=== PATIENT | male | born 1970 | race Caucasian/White ===

== ENCOUNTER 2018-07-24 14:20 | Outpatient (CLI) | payer MEDICAID, SELFPAY ==
--- NOTE | 2018-07-24 13:02 | DI.RAD_ITS ---
SYMPTOMS/DIAGNOSIS: LEFT KNEE PAIN; F/U RIGHT KNEE DEGENERATIVE JOINT DISEASE BILATERAL KNEES: Two views of each knee were obtained. There are bilateral ACL reconstructions. There is moderate narrowing of medial tibiofemoral cartilaginous joint space on the left and mild narrowing of medial tibiofemoral cartilaginous joint space on the right. Minimal hypertrophic spurring of the bones of the knee noted. CONCLUSION: DJD involving medial tibiofemoral joints, left greater than right. BILATERAL LOWER EXTREMITIES: AP views of the lower extremities were performed for leg length determination. There are mild degenerative changes of both hips. There are bilateral ACL reconstructions and medial tibiofemoral joint DJD, left greater than right.
== END 2018-07-24 14:40 ==
PROVIDERS: Visit Provider Student in an Organized Health Care Education/Training Program
DX: M17.0 Bilateral primary osteoarthritis of knee (principal); M25.562 Pain in left knee; M16.0 Bilateral primary osteoarthritis of hip
CPT/HCPCS: 73560; 77073

== ENCOUNTER 2018-08-29 08:51 | Outpatient (CLI) | payer MEDICAID, SELFPAY ==
--- NOTE | 2018-08-29 08:00 | HPE_ITS ---
Assessment and Plan (1) Primary osteoarthritis of left knee: Current visit: No Status: Chronic Plan: Patient had standing alignment films done at his last orthopedic appointment. He was provided with a guide to total knee replacements. Educated patient on surgery covering surgical technique via models, recovery process, benefits and risks including but not limited to risk of infection, blood clot, damage to soft tissue/blood vessels/nerves in detail. After discussion patient gives verbal understanding of risks and elects to proceed with scheduling surgery. Patient had opportunity to have questions answered to their satisfaction. They will contact office if issues arise. Patient will continue to be scheduled for left total knee replacement with Dr. Ureña. History of Present Illness Narrative: Mr. Hawkins is a 48-year-old male who presents to visit for scheduled left total knee replacement with Dr. Ureña and 09/07/2018. 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 Patient also complains of bilateral knee instability despite bilateral ACL reconstructions with his right knee operated on 2012 followed by his left in 2015. Despite his ACL reconstruction patient continues to have frequent falling episodes due to pain and instability. He describes as feeling as knees hyperextending with the left worse than the right. Patient complains of chronic bilateral knee pain with the left slightly worse than the right. He has previously tried a right knee injection which is described as tra umatic experience and only provided about 3 hours of pain relief. Patient has also previously tried amitriptyline to help slightly to reduce bilateral knee pain for approximately 1 week. Due to patient's continued bilateral knee pain as well as radiology findings consistent with DJD bilaterally Dr. Ureña offered surgical intervention and patient elected to proceed. Denies any muscle weakness, numbness and tingling. Pertinent Surgical Information Reports history one episode of dyspnea and chest pain that caused him to present to the ER around [id number]. Reports short ER visit when OK was ruled out and he was sent home. Reports that his symptoms fully resolved following that visit. Denies any dyspnea, dyspnea on exertion, chest pain, tachycardia/bradycardia, irregular heart beat, or palpitations. Denies any continued cardiac issues or cardiology follow up. Denies past medical history of: stroke, cardiac issues, angina, asthma, sleep apnea, renal issues, liver issues, hepatitis, gastrointestinal ulcers, bleeding disorders, seizures, migraines, depression, diabetes, autoimmune disorders, thyroid issues Denies prior complications from surgery or anesthesia. Review of Systems Constitutional Denies fever(s) and Denies headache(s) Eyes Denies change in vision ENT Denies dizziness, Denies ear discharge, Denies headache(s), Denies epistaxis, Denies nasal discharge and Denies sore throat Cardiovascular Denies chest pain, Denies rapid heart rate, Denies irregular heart rhythm, Denies palpitations, Denies dyspnea, Denies dyspnea on exertion, Denies orthopnea, Denies paroxysmal nocturnal dyspnea and Denies slow heart rate Respiratory Denies cough, Denies dyspnea, Denies dyspnea on exertion and Denies wheezing Gastrointestinal Denies abdominal pain, Denies melena, Denies hematochezia, Denies constipation, Denies diarrhea, Denies nausea and Denies vomiting Genitourinary Denies hematuria, Denies dysuria and Denies urinary urgency Musculoskeletal Reports as per HPI, Denies numbness and Denies tingling Neurologic Denies dizziness, Denies headache(s), Denies numbness and Denies tingling Psychiatric Reports anxiety and Denies depression Endocrine Denies palpitations Allergic/Immunologic Denies wheezing PFSH Medical History Anxiety (Chronic) Lumbago with sciatica, left side (Acute) Hyperlipidemia (Chronic) Chronic otitis externa (Chronic) Insomnia (Chronic) Tobacco dependence (Chronic) GERD (gastroesophageal reflux disease) (Chronic) COPD (chronic obstructive pulmonary disease) (Chronic) Hypertension (Chronic) Primary osteoarthritis of right knee (Chronic) Primary osteoarthritis of left knee (Chronic) Surgical History Status post cholecystectomy (Chronic) History of repair of anterior cruciate ligament of left knee (Chronic) History of repair of anterior cruciate ligament of right knee (Chronic) Family History Maternal Grandfather Colon malignancy Uncle Colon malignancy Social History Smoking/Tobacco Use Status: Current every day Tobacco Type: cigarettes Smoking cigarettes per day: 3 Years smoked: 36 Tobacco: How many years used: 36 Alcohol Intake: current Alcohol Intake frequency: holidays/special occasions only Drug use: Never current occupation: trying to get on disability Meds Home Medications Medication Instructions Recorded Confirmed Type omeprazole 40 mg capsule,delayed 40 mg PO DAILY 07/24/18 07/24/18 History release Allergies Allergy/AdvReac Type Severity Reaction Status Date / Time peas Allergy Anaphylaxsi Verified 08/29/18 08:24 s lisdexamfetamine AdvReac Intermediate Verified 08/29/18 08:24 [From [facility]] Exam Const General: cooperative and no acute distress [facility] Head: normal to inspection, normocephalic and atraumatic Ears: external ears normal General nose exam: external nose normal and no nasal discharge Face and sinus: face symmetric Mouth: oral mucosae normal, lip normal, tongue normal and moist mucous membranes Teeth and gingiva: dentition normal Throat: posterior oropharynx normal Eyes General: appearance normal, both eyes and all related structures Pupils: PERRL EOM: EOM intact bilaterally Neck Neck: trachea midline Carotids: normal carotid upstroke Lymphatic: no lymphadenopathy noted Resp Effort & Inspection: normal respiratory effort and able to speak in complete sentences Auscultation: clear to auscultation bilaterally, no rales, no rhonchi and no wheezes Cardio Heart Sounds: S1 normal, S2 normal, no murmurs, no rubs and no other Pulses: radial pulses present bilaterally GI Palpation: soft, no hepatosplenomegaly and nontender Auscultation: normal bowel sounds Skin General skin exam: no rashes or lesions noted Extrem Other: Left knee examination: Skin is intact without signs of rash, lesions, erythema or calor. No signs of effusion are noted. Tenderness to palpation along medial and lateral joint lines. Active range of motion yields full extension and flexion to 90 degrees with discomfort elicited. Slight laxity is appreciated with valgus stress but stable end point is achieved - patient has discomfort with stress testing. Knee is stable to varus stress with minimal discomfort.
[2018-08-29 10:18] LABS: HCT 44.8 % (40.0-50.0); HGB 15.3 g/dL (13.5-17.5); Mean Corp. HGB Concentration 34.2 g/dL (32.0-36.0); Mean Corpuscular Hemoglobin 32.3 pg (27.0-33.0); Mean Corpuscular Volume 94.5 fL (80-95); Mean Platelet Volume 9.3 fL (8.0-11.0); Platelet Count 245 x1000/uL (130-400); RBC 4.74 m/cumm (4.50-6.00); White Blood Cell Count 6.21 k/cumm (4.4-10.8)
[2018-08-29 10:35] LABS: Hemoglobin A1C 5.6 % (4.5-6.2)
[2018-08-29 11:17] LABS: ALT 31 U/L (12-78); AST 16 U/L (15-37); Alkaline Phosphatase 75 U/L (46-116); Anion Gap 9.3 mmol/L (3-11); BUN 13 mg/dL (7-18); Bilirubin, Total 0.3 mg/dL (0.2-1.0); CO2 26.7 mmol/L (21.0-32.0); Calcium 8.7 mg/dL (8.5-10.1); Chloride 106 mmol/L (98-107); Glucose 110 mg/dL (70-100); Potassium 4.5 mmol/L (3.5-5.1); Sodium 142 mmol/L (136-145); Total Protein 7.2 g/dL (6.4-8.2)
== END 2018-08-29 09:11 ==
PROVIDERS: PCP Internal Medicine; Visit Provider Student in an Organized Health Care Education/Training Program
DX: M25.562 Pain in left knee (principal); M17.12 Unilateral primary osteoarthritis, left knee; K21.9 Gastro-esophageal reflux disease without esophagitis; Z01.812 Encounter for preprocedural laboratory examination; Z01.818 Encounter for other preprocedural examination
CPT/HCPCS: 36415; 80053; 85027; NC; 83036

== ENCOUNTER 2018-09-07 06:28 | Inpatient (IN) | payer MEDICAID, SELFPAY ==
[2018-08-29 09:12] VITALS: BP 138/88; PULSE 79; RESP 16; TEMP 37.3; O2SAT 99
[2018-08-29 09:15] VITALS: BP 138/88; PULSE 79; RESP 16; TEMP 37.3; O2SAT 99
[2018-09-07] VITALS (12 sets, daily range): BP systolic 115–137; BP diastolic 78–98; PULSE 62–86; RESP 14–18; TEMP 35.7–36.7; O2SAT 95–98
[2018-09-07] MEDS: oxyCODONE-CR 10 MG TABCR PO (06:56)
[2018-09-07] MEDS: Celecoxib 200 MG CAP 400 MG PO (06:56)
[2018-09-07] MEDS: Gabapentin 300 MG CAP PO (06:57)
[2018-09-07] MEDS: Acetaminophen 500 MG TAB 1000 MG PO ×3 (06:57→20:06)
[2018-09-07] MEDS: Lactated Ringers 1,000 ML 80 ML IV ×4 (07:25→22:56)
[2018-09-07] MEDS: Bupivacaine LIPOSOME/PF 133 MG/10 ML VIAL IJ ×2 (07:38→09:07)
[2018-09-07] MEDS: Bupivacaine 0.5% Pres-Free 30 ML VIAL (07:38)
[2018-09-07] MEDS: ceFAZolin 3,000 MG in Normal Saline 100 ML 200 MG IVPB (08:00)
[2018-09-07] MEDS: Normal Saline 50 ML (09:07)
[2018-09-07] MEDS: Ketorolac 30 MG/ML VIAL (09:07)
[2018-09-07] MEDS: Bupivacaine 0.25% Pres-Free 30 ML VIAL (09:07)
[2018-09-07] MEDS: Normal Saline Flush 10 ML SYR IV (11:15)
--- NOTE | 2018-09-07 11:33 | NUR.NOTE ---
Nursing Note: Patient transferred from PACU to Med/Surg room 206 at 1040 via stretcher
[2018-09-07] MEDS: oxyCODONE 5 MG TAB PO ×4 (12:39→22:55)
--- NOTE | 2018-09-07 15:13 | IN_ITS ---
Date of service: 09/07/18 Time of Service: 14:07 PT Notes Inpatient Physical Therapy Evaluation Date: 09/07/2018 Referring Doctor: Dina PT Orders: PT CONSULT: Status post left TKA Precautions: Fall. Standard. WBAT on left LE Patient Profile/Admitting Diagnosis: Patient is a 48-year-old male with primary osteoarthritis of left knee status post left total knee arthroplasty on postoperative day 0. PMHX: Medical History Anxiety (Chronic) Lumbago with sciatica, left side (Acute) Hyperlipidemia (Chronic) Chronic otitis externa (Chronic) Insomnia (Chronic) Tobacco dependence (Chronic) GERD (gastroesophageal reflux disease) (Chronic) COPD (chronic obstructive pulmonary disease) (Chronic) Hypertension (Chronic) Primary osteoarthritis of right knee (Chronic) Primary osteoarthritis of left knee (Chronic) Surgical History Status post cholecystectomy (Chronic) History of repair of anterior cruciate ligament of left knee (Chronic) History of repair of anterior cruciate ligament of right knee (Chronic) Social History/Home Situation: Bill lives with mother in a 1 floor house with 1 step to enter, no rails. 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 He was independent with all aspects of ADLs without the need for ambulatory device or adaptive equipment. Son lives 2 miles away from them. Current Functional Limitations: Need for an assistive device for all transfer and ambulation task performance Equipment Owned/DME: None Subjective: Patient is agreeable to a PT consult and treatment today. He is amazed at how much he is able to do and at how soon he could walk right after surgery. He states he is looking forward to having the other knee done next year. He reports that he has been used to pain for a long time that his pain threshold is high. He denies headache, chest pain, and dizziness throughout PT session. Objective: General Observation: Patient seen resting in bed. BMI 35.8 kg/m2. IV in the right UE. Cuevas catheter in place. T EDS on her right leg. VINCENT bandage on left LE. Cryocuff on left LE. Mental Status: Alert and oriented x4 Pain: 2-3/10 at rest and with Oxycodone intake at noon today. 5-6/10 after gait activity. Vital Signs: Patient tested negative for orthostatic hypotension as tested nursing staff. ROM: Right Upper Extremity: Shoulder Flexion WFL. Shoulder abduction WFL. Elbow flexion WFL. Wrist flexion WFL. Functional opening and closing of hand WFL. Left Upper Extremity: Shoulder Flexion WFL. Shoulder abduction WFL. Elbow flexion WFL. Wrist flexion WFL. Functional opening and closing of hand WFL. Right Lower Extremity: Hip flexion WFL. Hip abduction WFL. Knee flexion WFL. Ankle dorsiflexion WFL. Ankle plantarflexion WFL. Left Lower Extremity: Hip flexion WFL. Hip abduction WFL. Knee flexion allows up to 90 degrees pain-free actively while seated on chair. Full knee extension achievable actively with minimal pain at kdh-cv-timat.PAtient is able to perform SLR x 10 without extensor lag and LAQs x 10 with fatigue reported towards the end. Ankle dorsiflexion WFL. Ankle plantarflexion WFL. Strength: Right Upper Extremity: Shoulder flexors 5/5. Shoulder abductors 5/5. Elbow flexors 5/5. Elbow extensors 5/5. Auditor Supervisor strong. Left Upper Extremity: Shoulder flexors 5/5. Shoulder abductors 5/5. Elbow flexors 5/5. Elbow extensors 5/5. Auditor Supervisor strong. Right Lower Extremity: Hip flexors 5/5. Hip abductors 5/5. Knee flexors 5/5. Knee extensors 5/5. Ankle dorsiflexors 5/5. Ankle plantarflexors 5/5. Left Lower Extremity:Hip flexors 4/5. Hip abductors 4/5. Knee flexors 3-/5. Knee extensors 4/5. Ankle dorsiflexors 4/5. Ankle plantarflexors 4/5. Sensation: Intact as to pain and pressure on bilateral lower extremities. Bed Mobility/Transfers: Rolling SBA Supine to sit SBA Sit to supine SBA Sit to stand CGA Stand to sit CGA Bed to chair CGA Chair to bed CGA Gait: Patient is able to tolerate 12 feet x 2 of level surface ambulation using front wheeled walker with DVT on left LE and CGA of this PT with step through gait pattern with pain on the left knee increasing her gait activity. Verbal cues needed for walker management and overall safety. Bilateral knees in good vertical alignment in standing. Midstance time on left limited due to pain with weight-bearing. Gait velocity decreased. Balance: Static Sitting: Good Dynamic Sitting: Good Static Standing: Fair Dynamic Standing: Fair Special Tests: Mobility Limitations Standardized Measure [facility] AM-PAC 6 clicks Basic Mobility Inpatient Short Form: Raw Score: 20 CMS Score: 36% deficit Informed Consent/Education: Patient instructed in purpose of PT consult and plan of care. Patient was advised to perform ankle pumping x30, quadriceps sets with 5-second hold x10, and gluteal setting with 5-second holds x10 every hour on his own to facilitate increased range of motion and maximize functional performance. Assessment: Patient is a 48-year-old male with primary osteoarthritis of left knee status post left total knee arthroplasty on postoperative day 0. Patient presents with clinical signs and symptoms consistent with current/admitting di agnoses and postoperative status that have resulted to mobility limitations, gait instability, generalized weakness, and impairment of motor control as demonstrated by the following impairment level findings: 1. Decreased strength to L kne major muscle groups 2. Impaired soft tissue integrity to L knee 3. Pain on L knee 4. Impaired sitting/standing balance 5. Impaired activity tolerance 6. Limitation of joint range of motion in left knee flexion Impairments are contributing to the following functional limitations: 1. Inability to safely ambulate without assistive device and physical assistance 2. Increase completion time for mobility ADL performance 3. Increased fall risk 4. Inability to negotiate steps alone safely Patient is assessed as a [id number] moderate complexity based on the following: History: Patient is a 48-year-old male with independent premorbid level now with primary osteoarthritis of left knee status post left total knee arthroplasty on postoperative day 0 Examination: Demonstrable impairment in strength, balance, and range of motion with underlying impairments and functional limitations as documented above Presentation:Evolving Decision Makin moderate complete Goals: Goals X1 week 1. Supine-Sit independent 2. Sit-Supine independent 3. Sit-Stand independent 4. Stand-Sit independent 5. Bed-Chair independent 6. Chair-Bed independent 7. Independent gait on level surface with use of least restrictive device for at least 300 feet without report of pain nor dyspnea 8. Independent stair negotiation while holding onto bilateral rails for at least 3 steps without report of pain nor dyspnea 9. Independent with home exercise program 10. Good static and dynamic standing balance/tolerance Plan of Care/Treatment Plan: 1-2x/day, 7 days/week x 1 week. Plan of care has been reviewed with the ADVISER SALES providing the service under Physical Therapy direction. Initiate Physical Therapy intervention for strengthening, bed mobility, transfers, gait, stairs, balance training, use of assistive device. DISCHARGE RECOMMENDATIONS: May benefit from skilled physical therapy services according to orthopedic surgeon timeline recommendations. Patient will be e ducated and trained on home exercise program per TKA exercise protocol in preparation for outpatient physical therapy services. TREATMENT CODE/TIME: 9716 2 x 30 minutes, 29862 x 24 minutes beginning at 14:07 PM. Thank you very much for this referral. Veronica Barlow PT, DPT, CLT [facility]
[2018-09-07] MEDS: HYDROmorphone 2 MG/ML VIAL 0.5 MG IVP ×2 (18:42→23:38)
[2018-09-07] MEDS: Celecoxib 100 MG CAP 200 MG PO (20:06)
[2018-09-07] MEDS: Aspirin E.C. 325 MG TABEC 81 MG PO (20:06)
[2018-09-08] MEDS: oxyCODONE 5 MG TAB PO ×3 (05:39→12:10)
[2018-09-08 05:47] VITALS: BP 125/83; PULSE 75; RESP 14; TEMP 36.3; O2SAT 98
--- NOTE | 2018-09-08 05:48 | W.PM.OP ---
Date of service: 09/08/18 Time of Service: 05:48 Operative Note DATE OF PROCEDURE: 09/07/18 PRE-OP DIAGNOSIS: Left knee osteoarthritis POST-OP DIAGNOSIS: same PROCEDURE: Left Total Knee Replacement SURGEON: Juan Carlos Ureña OPTOMETRIC TECH: Melissa Cm ANESTHESIA: regional and spinal ESTIMATED BLOOD LOSS: 200 PATHOLOGY: none sent TOURNIQUET TIME: 31 COMPLICATIONS: None Patient was transported to: PACU Patient's condition: stable Implants: 1. Depuy Attune Posterior Stabilized Femoral Component, Size 6 2. Depuy Attune Fixed Platform Tibial Component, Size 5 3. Depuy Attune 6 x 8 mm fixed, Stabilized Poly 4. Depuy Attune Patellar Component, Size 38 mm Indications: I have seen Roberto in clinic for symptoms of left knee arthritis and instability, confirmed with radiographic findings. He has exhausted nonoperative methods and was having significant limitations in daily function and desired better function and less pain. I discussed the technical details of a knee replacement. I explained the risks of the procedure to include, but not limited to, bleeding, infection, pain, stiffness, fracture, damage to nerves and vessels, damage to muscles and tendons, loosening, need for repeat procedure, blood clot and cardiopulmonary demise. Despite these risks, Roberto elected to proceed. Findings: There was severe chondromalacia primarily medial tibia. There is also some patellar chondromalacia appreciated. The ACL and PCL were intact but there is significant hyperextension laxity of the left knee and preoperative testing. Procedure Description: Roberto was greeted in the preoperative holding area where the correct side was identified and marked. The consent was reviewed with the patient and signed. The history and physical was updated. All questions were answered. Preoperative mediacations were administered: Acetaminophen 1000mg, Celebrex 400mg, Gabapentin 300mg, and Oxycontin 10mg. An adductor canal block was then administered by the anesthesia team in the PACU. He was taken back to the operating room. A spinal anesthestic was then administered. The patient was placed into the supine position on the operating room table. A nonsterile tourniquet was placed high onto the leg but only used for cementing. Posts were placed for positioning during the procedure. All bony prominences were well padded. Prophylactic antibiotics in the form of cefazolin were administered. 1g of Tranxemic Acid was given intravenously within 30 minutes of incision. The left leg was then prepped with Chloraprep and draped in a standard fashion with impervious stockinette and extremity drape with Iodine impregnated skin protection. A timeout to confirm correct identity, side and site, procedure, allergies, anesthesia, and medical concerns was performed. With the knee in some flexion, a midline incision was made overlying the knee. Full thickness skin flaps were raised once the extensor mechanism was encountered. These were raised medially and laterally. Any bleeding was controlled with electrocautery. Once the extensor mechanism was fully exposed, a medial parapatellar arthrotomy was performed in a flexed position. All bleeding from the arthrotomy and the geniculate arteries was coagulated. A medial subperiosteal peel was performed with electrocautery to the midcoronal plane. The fat pad was removed while keeping the patellar tendon protected. The anterior distal femur synovium was removed for later visualization. The ACL and PCL were resected and the anterior horn of the lateral meniscus was transected. The knee was then flexed with the patella everted. Using a step drill, and based on preoperative templating, the femoral canal was entered. This was done with a step drill without any difficulty. The intramedullary distal femoral cut guide was inserted, set to a 5 degree valgus cut and 9mm cut thickness. The distal femoral cut guide was then held in position and pinned. With the soft tissues protected, the distal cut was performed. This was passed over a few times to ensure a planar cut. I then turned attention to the tibia. The extramedullary guide was placed onto the leg. The distal aspect was slid medial to adjust for position of center of ankle and stay in line with shaft of the tibia. Approximately 3-5 degrees of posterior slope was kept in the proximal cutting guide. The center of the guide was aligned with the PCL. The stylus was used to assess cut thickness. The medial side, most involved side, was set for a 5mm cut. This was then held in position and pinned into place with 2 additional pins and a cross pin for stability. The medial and lateral collateral ligaments were protected and the cut was performed. With this completed, it was assessed and noted to be of appropriate dimensions. The guide was removed. A spacer block was inserted and the knee was brought into extension. The 7 mm spacer block provided full extension, without hyperextension and with stability of both the medial and lateral collateral ligaments was assessed. The pins from the femur and the tibia were then removed. The distal femur was then sized. The anterior stylus was placed onto the lateral ridge of the anterior femur. This indicated a size 6 femur. The external rotation of the guide was adjusted to 3 degrees to match the epicondylar axis, perpendicular to [place]?s line. The 4-in-1 cutting guide was the placed. The posterior medial femur cut was evaluated and appeared of good thickness. The spacer block was inserted underneath the cutting guide and stability was confirmed in 90 degrees of flexion. An sotero wing was used to confirm appropriate position of the anterior cut to avoid notching. This cutting guide was ensured to be flush on the cut surface and then pinned into place with headed pins. While protecting the soft tissues, quad tendon, and collateral ligaments, the anterior and posterior cuts were performed with a saw. The central two pins were removed and the posterior and anterior chamfers were cut next. The notch-cutting guide was placed. This was pinned to lateralize the femoral component as much as possible while keeping it flush on the cut surface. This was then pinned into position. A reciprocating saw was used to make the notch cut. A rasp smoothed the cut surfaces. A trial posterior stabilized femoral component was then inserted, impacted down to the cut surfaces, and the lug holes were drilled. A provisional trial tibial component was placed and the knee was brought through range of motion. The polyethylene was trialed until there was good flexion and extension with excellent stability to the medial and lateral collaterals. The patella was tracking without thumbs. The tibial cut surface was fully exposed. The medial and lateral menisci were removed. The tibia was then sized as a 5. The tibia had been previously marked during trialing to correspond to the center of the tibial component to help with rotation. The trial was aligned to this melissa, approximately rotated to the medial 1/3rd of the tibial tubercle. The trial was pinned into place. The tibia was prepared with a reamer and a keel punch. The knee was then brought into extension and the patella was measured as 25 mm. Using the patellar clamp and cut guide, this was resected to a flat surface with at least 13mm of thickness remaining. The size 38 patella fit the best. This was oriented and then clamped into position. The lugs were drilled. The trial components were removed. The final components, except for the polyethylene were opened on the back table. The periosteal and capsular tissues, especially posteriorly, around the knee were then systematically injected with a periarticular cocktail consisting of 50cc 0.25% Marcaine, 30mg Ketorolac, 20cc of Exparal and 50cc of injectable saline. The tourniquet was then inflated to 275mmHg. The knee was thoroughly irrigated with a pulse lavage and dried. On the back table, with the implants opened, the cement was mixed. 2 batches of antibiotic laden cement were prepared with vacuum assistance. After the cement was ready a small amount was placed on to the back side of the tibial component at the keel. A small amount was placed onto the posterior flange of the femur. Cement was manual pressurized and impregnated into the cut surface of the tibia. The tibial component was then inserted into the cut surface and impacted into position. Excess cement was removed and the component was reimpacted. Again, excess cement was removed and our attention was then turned to the femur. The femoral cut surface was once again dried and cement was manually impacted into the cut surface. The femoral component was lined with the lug holes and impacted. Excess cement was removed. It was ensured to be down against the cut surface. The trial polyethylene was then inserted and the leg was brought out into full extension for the duration of the cement curing process, approximately 15min. Cement was lastly manually impacted into the cut surface of the patella and the patellar button was clamped into position and held. During this process attention was turned to the gutters of the knee and for all interfaces for any excess cement. After the cement had finally cured, approximately 15min, the clamp was removed from the patella and the knee was taken through range of motion. A size 8 mm polyethylene component provided the best range of motion and stability with less than 2mm gapping with medial and lateral stress and full extension without significant hyperextension. The patella was tracking with a no-thumbs technique. The trial poly was removed and once again the knee was checked for any loose, excess, or errant cement. The poly component was then inserted and impacted into position after cleaning and drying the tibial tray. The capsule was then reapproximated with a No. 1 Vicryl at multiple locations. The capsule was finally closed with a No. 2 Stratafix, barbed suture. The tourniquet was then released and the arthrotomy appeared watertight without significant bleeding. The second dosing of 1g TXA was started. Deep tissues were then reapproximated with 0 Vicryl and 2-0 Vicryl. The skin was closed with a running 3-0 Monocryl in a subcuticular fashion. This was reinforced with skin glue. A Mepilex silver dressing was applied along with a [id number] VINCENT wrap. A CryoCuff was applied. Roberto was transferred to the hospital bed without difficulty an suffering no apparent complication. Roberto has a good prognosis. Physical therapy will start today and without restrictions, weight-bearing as tolerated. Aspirin 81mg BID will be used for DVT prophylaxis.
[2018-09-08 07:45] VITALS: BP 131/89; PULSE 74; RESP 18; TEMP 36; O2SAT 96
[2018-09-08] MEDS: Dexamethasone 4 MG TAB PO (08:11)
[2018-09-08] MEDS: Omeprazole 20 MG CAPCR PO (08:11)
[2018-09-08] MEDS: Celecoxib 100 MG CAP 200 MG PO (08:12)
[2018-09-08] MEDS: Acetaminophen 500 MG TAB 1000 MG PO (08:12)
[2018-09-08] MEDS: Aspirin E.C. 325 MG TABEC 81 MG PO (08:13)
--- NOTE | 2018-09-08 08:24 | PDOC.CMIN ---
Care Management Initial Assess REASON FOR HOSPITALIZATION:: L Knee DJD PAST MEDICAL HISTORY/PAST SURGICAL HISTORY:: Anxiety, Lumbago with sciatica, left side, Hyperlipidemia, Chronic otitis externa, Insomnia, Tobacco dependence, GERD, COPD, Hypertension, Primary osteoarthritis of bilat knees, cholecystectomy, History of repair of anterior cruciate ligament bilaterally PREVIOUS FUNCTIONAL STATUS/SOCIAL/FAMILY SUPPORTS:: Roberto resides in [place], [place]. He is independent at baseline with all ADLs. CURRENT FUNCTIONAL STATUS:: Roberto was pleasant in interaction, worked with PT and was cleared for discharge. He shared no concerns regarding his discharge plan, CM reviewed contact information as needed post discharge. ADVANCE DIRECTIVES:: None on file at [facility]. Has patient been provided with information about the portal?: Yes Did the patient sign up for the portal?: No CODE STATUS:: Full Code INSURANCE COVERAGE / FINANCIAL ISSUES:: Medicaid CURRENT HOME/COMMUNITY SERVICES/EQUIPMENT:: No current services or equipment. PRIMARY CARE PHYSICIAN:: Leeroy Fernando POTENTIAL DISCHARGE NEEDS:: Follow up appointments with Dr. Ureña and his PCP. PATIENT/FAMILY EDUCATION NEEDS:: Review of discharge instructions, discuss Ask Me Three. ANTICIPATED BARRIERS TO DISCHARGE:: None identified. TRANSPORTATION:: Via private vehicle with family. PLAN:: Roberto will return home when ready per MD. He will have new FWW coordinated by this verse writer through and [facility] at Roberto's request. He will follow up with Dr. Ureña and his plan of care as prescribed. He will transport via private vehicle with his son.
[2018-09-08 11:47] VITALS: BP 131/78; PULSE 82; RESP 20; TEMP 36.4; O2SAT 97
--- NOTE | 2018-09-08 11:55 | PT.INTREAT ---
Date of service: 09/08/18 Time of Service: 11:55 PT Notes Inpatient Physical Therapy Treatment Note [facility] Date: 09/08/18 PRECAUTIONS: Fall, WBAT L SUBJECTIVE: Roberto states that he is feeling pretty good today, although a little stiff t/o L LE. He reports that he walked multiple times with nursing last night, which felt good. OBJECTIVE: PAIN: No c/o pain BED MOBILITY/TRANSFERS Supine-sit: I with HOB flat Sit-stand: S Stand-sit: S GAIT Assistive Device: FWW Weight bearing: WBAT on L Assist: S Distance: 300' Deviation: Step-through THEREX: Patient completed a LE strengthening and stabilization program, as per flow sheet. Ends with cryocuff to L knee. ASSESSMENT: Patient tolerated session well without complaint of pain. He was able to tolerate a progression in gait distance with FWW support and supervision. PLAN:As per primary PT TREATMENT CODE/TIME: 25 minutes; [id number], [id number]
--- NOTE | 2018-09-08 11:59 | DSE_ITS ---
Date of service: 09/08/18 Time of Service: 12:08 DS: Diagnosis Discharge Diagnosis (1) Primary osteoarthritis of left knee: Status: Chronic Discharge Plan Disposition Patient Disposition: HOME Condition: Improving Discharge Details Reason For Visit: L KNEE DJD Admit Date/Time: 09/07/18 06:28 Admit Provider: Juan Carlos Ureña Attending Provider: Juan Carlos Ureña Primary Care Provider: Leeroy Fernando Hospital Course Hospital Course: Patient was admitted to the medical/surgical floor following the procedure. It was tolerated well without any notable medical, surgical, or anesthetic complications. Mobilization began postoperatively. The gray catheter was removed and voiding spontaneously. Vitals were stable. Physical therapy worked with the patient and was cleared for discharge home. No acute medical issues. Home Meds and New Rx's Prescriptions: New aspirin 81 mg tablet,delayed release (DR/EC) 81 mg PO BID Qty: 60 RF: 0 acetaminophen 500 mg tablet 1,000 mg PO Q8H PRN (Reason: pain) Qty: 90 RF: 3 gabapentin 300 mg capsule 300 mg PO QHS Qty: 7 RF: 0 ibuprofen 600 mg tablet 600 mg PO TID PRNQty: 90 RF: 3 oxycodone 10 mg tablet 10 mg PO Q4H PRN (Reason: pain) Qty: 18 RF: 0 Continued omeprazole 40 mg capsule,delayed release(DR/EC) 20 mg PO DAILY RF: 0 Discharge Instructions Additional Instructions: Dr. Ureña?s Total Knee Discharge Instructions Activity: The most important activity is to walk. You should try to take short walks a few times a day. It is important that when resting you work on keeping the knee straight. Avoid putting a pillow behind the knee as this will encourage flexion. Work on range of motion exercises as provided by Physical Therapy. - Start outpatient physical therapy within 2 weeks. - You should wear the GLO hose on both legs for 2 weeks. Dressing: Keep the surgical dressing in place for at least one week. After the first week it may be removed and replace with light gauze and tape or nothing. It may get wet after 3 days but avoid soaking the dressing. If it gets wet, just lightly pat dry. Medications: - You should take Tylenol and anti-inflammatory ibuprofen as your primary pain control medications - You have been prescribed a stronger pain medication oxycodone for breakthrough pain, take as needed as prescribed. - You should continue stomach acid reduction agent omeprazole to help reduce stomach acid and reflux. - You will be taking aspirin 81mg twice a day for DVT prevention unless instructed otherwise. - If you have constipation you should take Colace or Miralax (both [id number]). It takes most people 3-4 days to have a bowel movement. Follow-up: 2 weeks Stand Alone Forms: Nursing Discharge Form Referrals: Juan Carlos Ureña MD [ [facility]FF PHYSICIAN] - Activity:: Activity as Tolerated Equipment/Supplies:: Walker Diet:: As Tolerated DS: Data Vitals/I&O Vitals and I&O: Vital Signs Temperature 36.4 C L 09/08/18 11:47 Temperature Source Tympanic 09/08/18 11:47 Pulse 82 09/08/18 11:47 Pulse Rhythm Regular 09/08/18 07:45 Respiratory Rate 20 09/08/18 11:47 Respiratory Effort Non-Labored 09/08/18 07:45 Respiratory Depth Normal 09/08/18 07:45 Respiratory Pattern Normal 09/08/18 07:45 Blood Pressure 131/78 09/08/18 11:47 Pulse Oximetry 97 09/08/18 11:47 Oxygen Delivery Method Room Air 09/08/18 11:47 Oxygen Flow Rate 0 09/08/18 11:47 Pain Level 4 09/08/18 11:52 Comment 09/08/18 11:47 Intake & Output 09/07/18 09/07/18 09/08/18 11:59 23:59 11:59 Intake Total 2430 / 5656.667 3226.667 / 5656.667 1460 / 1460 Output Total 1125 / 5025 3900 / 5025 2049 Balance 1305 / 631.667 -673.333 / 631.667 -590 / -590 Weight 113.3 kg Intake: IV 2130 / 3256.667 1126.667 / 3256.667 1100 / 1100 Oral 300 / 2400 2100 / 2400 360 / 360 Output: Urine 875 / 4775 3900 / 4775 2049 Estimated Blood Loss 250 / 250 Other: Urine Color Yellow Yellow Yellow Urine Appearance Clear Clear Clear Comment pt voided stated it seemed like alot but there was no hat so could not measure Stool Size Large Stool Characteristics Formed Brown Emesis Description None Voiding Methods Indwelling Catheter Toilet [facility] Medical History Anxiety (Chronic) Chronic otitis externa (Chronic) COPD (chronic obstructive pulmonary disease) (Chronic) GERD (gastroesophageal reflux disease) (Chronic) Hyperlipidemia (Chronic) Hypertension (Chronic) Insomnia (Chronic) Lumbago with sciatica, left side (Acute) Primary osteoarthritis of left knee (Chronic) Primary osteoarthritis of right knee (Chronic) Tobacco dependence (Chronic) Surgical History History of repair of anterior cruciate ligament of left knee (Chronic) History of repair of anterior cruciate ligament of right knee (Chronic) Status post cholecystectomy (Chronic) Family History Maternal Grandfather Colon malignancy Uncle Colon malignancy Social History Smoking/Tobacco Use Status: Current every day Tobacco Type: cigarettes Tobacco: How many years used: 36 Alcohol Intake: current Alcohol Intake frequency: holidays/special occasions only Drug use: Never current occupation: trying to get on disability
--- NOTE | 2018-09-08 15:39 | CHAPLAIN ---
I visited Roberto this morning as he was waiting to be discharged. He told me about his knee surgery and said it was already feeling less painful, and he was looking forward to being discharged.
--- NOTE | 2018-09-08 17:17 | INDS_ITS ---
Date of service: 09/08/18 PT Notes Inpatient Physical Therapy Discharge Summary Dates: 09/08/2018 Dates of Service: 09/07/2018 through 09/08/2018 This is a clinical summary of care provided on the duration of dates listed above. No charge was made in the completion of this documentation. Referring Doctor: Dina PT Orders: PT CONSULT: Status post left TKA Precautions: Fall. Standard. WBAT on left LE Patient Profile/Admitting Diagnosis: Patient is a 48-year-old male with primary osteoarthritis of left knee status post left total knee arthroplasty on postoperative day 1. PMHX: Medical History Anxiety (Chronic) Lumbago with sciatica, left side (Acute) Hyperlipidemia (Chronic) Chronic otitis externa (Chronic) Insomnia (Chronic) Tobacco dependence (Chronic) GERD (gastroesophageal reflux disease) (Chronic) COPD (chronic obstructive pulmonary disease) (Chronic) Hypertension (Chronic) Primary osteoarthritis of right knee (Chronic) Primary osteoarthritis of left knee (Chronic) Surgical History Status post cholecystectomy (Chronic) History of repair of anterior cruciate ligament of left knee (Chronic) History of repair of anterior cruciate ligament of right knee (Chronic) Social History/Home Situation: Bill lives with mother in a 1 floor house with 1 step to enter, no rails. Patient is a ann by [employer] and previously renovated his mom's home so that it is handicap-accessible. He was independent with all aspects of ADLs without the need for ambulatory device or adaptive equipment. Son lives 2 miles away from them. Current Functional Limitations: Need for an assistive device for all transfer and ambulation task performance Equipment Owned/DME: None Subjective: NT Objective: General Observation: NT Mental Status: NT Pain: NT ROM: Right Upper Extremity: Shoulder Flexion WFL. Shoulder abduction WFL. Elbow flexion WFL. Wrist flexion WFL. Functional opening and closing of hand WFL. Left Upper Extremity: Shoulder Flexion WFL. Shoulder abduction WFL. Elbow flexion WFL. Wrist flexion WFL. Functional opening and closing of hand WFL. Right Lower Extremity: Hip flexion WFL. Hip abduction WFL. Knee flexion WFL. Ankle dorsiflexion WFL. Ankle plantarflexion WFL. Left Lower Extremity: Hip flexion WFL. Hip abduction WFL. Knee flexion allows up to 90 degrees pain-free actively while seated on chair. Full knee extension achievable actively with minimal pain at [id number]-[id number].PAtient is able to perform SLR x 10 without extensor lag and LAQs x 10 with fatigue reported towards the end. Ankle dorsiflexion WFL. Ankle plantarflexion WFL. Strength: Right Upper Extremity: Shoulder flexors 5/5. Shoulder abductors 5/5. Elbow flexors 5/5. Elbow extensors 5/5. Day Light Relief Operator strong. Left Upper Extremity: Shoulder flexors 5/5. Shoulder abductors 5/5. Elbow flexors 5/5. Elbow extensors 5/5. Day Light Relief Operator strong. Right Lower Extremity: Hip flexors 5/5. Hip abductors 5/5. Knee flexors 5/5. Knee extensors 5/5. Ankle dorsiflexors 5/5. Ankle plantarflexors 5/5. Left Lower Extremity:Hip flexors 4/5. Hip abductors 4/5. Knee flexors 3-/5. Knee extensors 4/5. Ankle dorsiflexors 4/5. Ankle plantarflexors 4/5. Sensation: Intact as to pain and pressure on bilateral lower extremities. Bed Mobility/Transfers: Rolling independent Supine to sit independent Sit to supine independent Sit to stand supervision Stand to sit supervision Bed to chair supervision Chair to bed supervision Gait: Patient is able to tolerate 300 feet level surface ambulation using front wheeled walker with supervision of this PT. Verbal cues needed for walker management and overall safety. Bilateral knees in good vertical alignment in standing. Midstance time on left limited due to pain with weight-bearing. Gait velocity decreased. Balance: Static Sitting: Good Dynamic Sitting: Good Static Standing: Fair Dynamic Standing: Fair Assessment: Patient is a 48-year-old male with primary osteoarthritis of left knee status post left total knee arthroplasty on postoperative day 0. Patient presents with clinical signs and symptoms consistent with current/admitting diagnoses and postoperative status that have resulted to mobility limitations, gait instability, generalized weakness, and impairment of motor control as demonstrated by the following impairment level findings: 1. Decreased strength to L kne major muscle groups 2. Impaired soft tissue integrity to L knee 3. Pain on L knee 4. Impaired sitting/standing balance 5. Impaired activity tolerance 6. Limitation of joint range of motion in left knee flexion Impairments are contributing to the following functional limitations: 1. Increase completion time for mobility ADL performance 2. Increased fall risk 3. Inability to negotiate steps alone safely Goals: Goals X1 week 1. Supine-Sit independent MET 2. Sit-Supine independent MET 3. Sit-Stand independent NOT MET 4. Stand-Sit independent NOT MET 5. Bed-Chair independent NOT MET 6. Chair-Bed independent NOT MET 7. Independent gait on level surface with use of least restrictive device for at least 300 feet without report of pain nor dyspnea NOT MET 8. Independent stair negotiation while holding onto bilateral rails for at least 3 steps without report of pain nor dyspnea NOT MET 9. Independent with home exercise program NOT MET 10. Good static and dynamic standing balance/tolerance NOT MET DISCHARGE RECOMMENDATIONS: May benefit from skilled physical therapy services according to orthopedic surgeon's timeline recommendations. Patient will be educated and trained on home exercise program per TKA exercise protocol in preparation for outpatient physical therapy services. TREATMENT CODE/TIME: OH Thank you very much for this referral. Veronica Barlow PT, DPT, CLT [facility]
== END 2018-09-08 14:00 | disposition home or self-care (01) | DRG 470 ==
LOC: PDS 06:36 → MS 09:59
PROVIDERS: Admitting Provider Student in an Organized Health Care Education/Training Program; PCP Internal Medicine; Visit Provider Student in an Organized Health Care Education/Training Program
PROC: 0SRD0J9 Replacement of Left Knee Joint with Synthetic Substitute, Cemented, Open Approach (ICD-10-PCS; CPT 27447; principal; 2018-09-07 07:30)
DX: M17.12 Unilateral primary osteoarthritis, left knee (principal); Z96.652 Presence of left artificial knee joint; E78.5 Hyperlipidemia, unspecified; F17.210 Nicotine dependence, cigarettes, uncomplicated; J44.9 Chronic obstructive pulmonary disease, unspecified; K21.9 Gastro-esophageal reflux disease without esophagitis; I10 Essential (primary) hypertension
CPT/HCPCS: 27447; 76942; 97110; 97162; 97530; NC; J0690; J1100; J1885; J2250; J2405; J8540

== ENCOUNTER 2018-09-22 09:06 | Outpatient (CLI) | payer MEDICAID, SELFPAY ==
--- NOTE | 2018-09-22 08:54 | DI.COMBO_ITS ---
SYMPTOM/DIAGNOSIS: F/U L TKA LEFT KNEE, AND LEG LENGTH : There are post surgical changes of a left total knee replacement. No evidence of hardware failure is seen. In the right knee there is mild narrowing and periarticular spurring in the medial femoral joint space Post surgical changes of a prior anterior cruciate ligament repair are noted. The right lower extremity measures 93.0 cm The left lower extremity measures 92 cm. IMPRESSION: 1. Degenerative changes of the right knee. 2. Left TKR.
== END 2018-09-22 09:26 ==
PROVIDERS: PCP Internal Medicine; Visit Provider Student in an Organized Health Care Education/Training Program
DX: M17.12 Unilateral primary osteoarthritis, left knee (principal); Z96.652 Presence of left artificial knee joint; M17.11 Unilateral primary osteoarthritis, right knee; Z98.890 Other specified postprocedural states
CPT/HCPCS: 73560; 77073

== ENCOUNTER 2020-08-11 12:15 | Outpatient (CLI) | payer MEDICAID, SELFPAY ==
--- NOTE | 2020-08-11 11:45 | DI.RAD_ITS ---
Exam(s) XR KNEE LT 3V AP,LAT,UMANG EXAM: XR KNEE LT 3V AP,LAT,UMANG CLINICAL HISTORY: eval L knee pain. TECHNIQUE: 2D digital imaging was performed. COMPARISON: CR XR standing alignment from 09/22/2018 CR XR knee LT 1V from 09/22/2018 FINDINGS: Position and alignment of components of the prosthesis remain stable. No fracture or loosening evide nt. IMPRESSION: DATA REPOSITORY: RADIATION DOSE DELIVERED:
[2020-08-11 12:53] LABS: Clarity Cloudy; Nucleated Cells 543 uL (0)
[2020-08-11 13:01] LABS: Mononuclear Cells 81 %; Polynuclear Cells 19 %
== END 2020-08-11 12:16 | disposition home or self-care (01) ==
LOC: DIORS 12:15
PROVIDERS: PCP Internal Medicine; Referring Provider Internal Medicine; Visit Provider Student in an Organized Health Care Education/Training Program
DX: M25.562 Pain in left knee (principal); Z96.652 Presence of left artificial knee joint; T84.84XA Pain due to internal orthopedic prosthetic devices, implants and grafts, initial encounter
CPT/HCPCS: 73562; 87070; 87205; 89051